=== PATIENT | male | born 1970 | race Caucasian/White ===

== ENCOUNTER 2025-08-13 09:48 | Day surgery (SDC) | payer OTHER ==
[~2025-08-13] VITALS: Ht 185.4 cm; Wt 111.0 kg
[2025-08-13] MEDS ORDERED: SILD25T (10:32)
--- NOTE | 2025-08-13 11:23 | NUR ---
08/13/25 1123 ERICKA CEE RESTING ON GURNEY, RAILS UP, BRAKES LOCKED, SPOUSE AT BEDSIDE, CALL LIGHT IN REACH, PT/ DENIES NEEDS/QUESTIONS AT THIS TIME.
[2025-08-13 12:32] VITALS: BP 121/82
== END 2025-08-13 12:32 | disposition home or self-care (01) ==
LOC: ORSCSDS 09:48
PROVIDERS: Specialist
PROC: 0DJD8ZZ Inspection of Lower Intestinal Tract, Via Natural or Artificial Opening Endoscopic (ICD-10-PCS; principal; 2025-08-13 11:30)
DX: Z12.11 Encounter for screening for malignant neoplasm of colon (principal); K64.8 Other hemorrhoids; Z86.0101 Personal history of adenomatous and serrated colon polyps; Z87.891 Personal history of nicotine dependence
CPT/HCPCS: J2704; J7120